=== PATIENT | male | born 1985 | race Caucasian/White ===

== ENCOUNTER 2022-07-12 13:40 | Emergency (ER) | payer OTHER | END 2022-07-12 15:39 | disposition home or self-care (01) | LOC: JP.ED 13:40 | DX: S96.911A Strain of unspecified muscle and tendon at ankle and foot level, right foot, initial encounter (principal); S80.11XA Contusion of right lower leg, initial encounter; I10 Essential (primary) hypertension; F17.210 Nicotine dependence, cigarettes, uncomplicated; Z88.1 Allergy status to other antibiotic agents; Z79.899 Other long term (current) drug therapy; W00.0XXA Fall on same level due to ice and snow, initial encounter | CPT/HCPCS: 73610-26-RT; 73610-RT; 99283 ==